=== PATIENT | male | born 1955 | race Caucasian/White ===

== ENCOUNTER → 2018-02-09 | Outpatient (CLI) | payer BC ==
[~2018-02-09] MED LIST: ASPI-496 PO; ERGO500017 PO; GABA300C10 PO; HYDR-3307 PO; HYDR25TA6 PO; IBUP-1223 PO; LISI-170 PO; METF500T4 PO; METH500T7 PO; MONT10TA9 PO; MULT-658 PO; PANT40TA5 PO; SIMV40TA3 PO
[2018-02-09 15:25] LABS: BASOPHILS # (AUTO) 0.03 x10^3/uL (0-0.1); BASOPHILS % (AUTO) 0 % (0-1); EOSINOPHILS # (AUTO) 0.23 x10^3/uL (0-0.4); EOSINOPHILS % (AUTO) 3 % (1-7); LYMPHOCYTES # (AUTO) 3.02 x10^3/uL (1-3.4); LYMPHOCYTES % (AUTO) 34 % (22-44); MD NO; MEAN CORPUSCULAR HGB CONC 34.1 g/dL (33.2-36.2); MEAN CORPUSCULAR VOLUME 90.9 fL (81-97); MEAN PLATELET VOLUME 7.2 fL (7.4-10.4); MONOCYTES # (AUTO) 0.84 x10^3/uL (0.2-0.8); MONOCYTES % (AUTO) 10 % (2-9); NEUTROPHILS # (AUTO) 4.74 x10^3/uL (1.8-6.8); NEUTROPHILS % (AUTO) 54 % (42-75); PLATELET COUNT 252 x10^3/uL (130-400); RED CELL DISTRIBUTION WIDTH 13.4 % (9.4-14.8)
[2018-02-09 15:33] LABS: MICROSCOPIC NOT IND
[2018-02-09 15:36] LABS: INTERNATIONAL NORMALIZED RATIO 0.89 (0.93-1.1); PROTHROMBIN TIME 9.3 Seconds (9.6-11.5)
[2018-02-09 15:40] LABS: CULTURE INDICATED? NO
[2018-02-09 15:45] LABS: CHLORIDE 104 mmol/L (98-107)
[2018-02-09 15:50] LABS: ALANINE AMINOTRANSFERASE 42 U/L (12-78); ALBUMIN 3.8 g/dL (3.4-5.0); ALKALINE PHOSPHATASE 72 U/L (45-117); ANION GAP 8 mmol/L (5-15); BILIRUBIN,TOTAL 0.4 mg/dL (0.2-1.0); CALCIUM 9.7 mg/dL (8.5-10.1); CREATININE 0.93 mg/dL (0.7-1.3); TOTAL PROTEIN 7.8 g/dL (6.4-8.2)
== END ==
LOC: STAR 14:28
PROVIDERS: ATTEND Neurological Surgery
DX: Z01.818 Encounter for other preprocedural examination (principal); M51.36 Other intervertebral disc degeneration, lumbar region
CPT/HCPCS: 36415; 71046; 80053; 81003; 85025; 85610; 85730; 93005

== ENCOUNTER 2018-02-18 05:21 | Inpatient (IN) | payer BC ==
[~2018-02-18] VITALS: Ht 177.8 cm; Wt 99.3 kg
[2018-02-18 06:07] VITALS: BP 169/107
[2018-02-18] MEDS ORDERED: LACTATED RINGERS 1,000 ML IV SCH (06:07)
[2018-02-18] MEDS ORDERED: MIDAZOLAM 1 MG/ML, 2ML ONE (06:11)
[2018-02-18] MEDS ORDERED: FENTANYL PF 250 MCG/5ML ONE (06:11)
[2018-02-18] MEDS ORDERED: PROPOFOL 10 MG/ML, 20ML ONE (06:14)
[2018-02-18] MEDS ORDERED: ROCURONIUM 10MG/ML,5ML ONE (06:15)
[2018-02-18] MEDS ORDERED: CEFAZOLIN 1,000 MG ONE ×2 (06:16)
[2018-02-18] MEDS ORDERED: SODIUM CHLORIDE 0.9% PF 10ML ONE (06:16)
[2018-02-18] MEDS ORDERED: THROMBIN 5,000 UNIT VIAL TP ONE (06:17)
[2018-02-18] MEDS ORDERED: BUPIVACAINE 0.25% ONE (06:17)
[2018-02-18] MEDS ORDERED: BUPIVACAINE/PF 0.5% ONE (06:17)
[2018-02-18] MEDS ORDERED: BACITRACIN 50,000 UNIT ONE (06:17)
[2018-02-18] MEDS ORDERED: EPINEPHRINE 1 MG/ML, 1ML ONE (06:17)
[2018-02-18] MEDS ORDERED: NEOSTIGMINE 1 MG/ML, 10ML ONE (06:18)
[2018-02-18] MEDS ORDERED: GLYCOPYRROLATE 0.4 MG/2 ML, 2ML ONE (06:18)
[2018-02-18] MEDS ORDERED: PROPOFOL 50 ML ONE ×3 (06:26→08:51)
[2018-02-18] MEDS ORDERED: MEPERIDINE/PF 25MG/0.5ML IVPush PRN (07:00)
[2018-02-18] MEDS ORDERED: FENTANYL PF 100 MCG/2ML IV PRN (07:00)
[2018-02-18] MEDS ORDERED: DIAZEPAM 5 MG/ML, 2ML IVPush PRN (07:00)
[2018-02-18] MEDS ORDERED: hydrALAzine 20 MG/ML, 1ML IV PRN (07:00)
[2018-02-18] MEDS ORDERED: PROMETHAZINE 25 MG/ML, 1ML IV PRN (07:00)
[2018-02-18] MEDS ORDERED: LABETALOL 5MG/ML, 20ML IV PRN (07:00)
[2018-02-18] MEDS ORDERED: OXYcodone 5 MG/5 ML ORAL.SOL UDC PO PRN (07:00)
[2018-02-18] MEDS ORDERED: ACETAMINOPHEN 325 MG TABLET PO PRN (07:00)
[2018-02-18] MEDS ORDERED: morphine SULFATE 10 MG/ML, 1ML IV PRN (07:00)
[2018-02-18] MEDS ORDERED: PROMETHAZINE 12.5 MG SUPP PR PRN (07:00)
[2018-02-18] MEDS ORDERED: ONDANSETRON 2MG/ML, 2ML IVPush PRN ×2 (07:00→10:00)
[2018-02-18] MEDS ORDERED: PHENYLEPHRINE 10 MG/ML ONE (07:12)
[2018-02-18] MEDS ORDERED: OXYcodone 5 MG/5 ML ORAL.SOL UDC ONE (09:49)
[2018-02-18] MEDS ORDERED: DIPHENHYDRAMINE 50 MG/ML, 1ML IVPush PRN (10:00)
[2018-02-18] MEDS ORDERED: OXYcodone/APAP 5/325MG TABLET PO PRN (10:00)
[2018-02-18] MEDS ORDERED: HYDROmorphone 1 MG/ML, 1ML ONE (10:00)
[2018-02-18] MEDS ORDERED: INSULIN REGULAR 100 UNITS/ML, 3ML VIAL SQ-INSULIN PRN (10:00)
[2018-02-18] MEDS ORDERED: SENNA/DOCUSATE TABLET PO PRN (10:00)
[2018-02-18] MEDS ORDERED: HYDROcodone/APAP 5/325 TABLET PO PRN (10:00)
[2018-02-18] MEDS ORDERED: PHARMACY MAY ADJ FOR RENAL FX MC PRN (10:00)
[2018-02-18] MEDS ORDERED: METHOCARBAMOL 750 MG TABLET PO PRN (10:00)
[2018-02-18] MEDS ORDERED: PROMETHAZINE 25 MG/ML, 1ML IM PRN (10:00)
[2018-02-18] MEDS ORDERED: BISACODYL 10 MG SUPP PR PRN (10:00)
[2018-02-18] MEDS: HYDROmorphone 1 MG/ML, 1ML IV PRN ×2 (10:10→10:20)
[2018-02-18 11:15] VITALS: BP 134/79
[2018-02-18] MEDS ORDERED: ERGOCALCIFEROL 50,000 UNIT CAPSULE PO SCH (11:30)
[2018-02-18] MEDS: NS + 20MEQ KCL 1,000 ML IV SCH ×2 (11:56→23:00)
[2018-02-18] MEDS: morphine SULFATE 10 MG/ML, 1ML IVPush PRN ×2 (11:57→12:24)
[2018-02-18 13:49] VITALS: BP 114/78
[2018-02-18] MEDS: CEFAZOLIN PMX 1GM/50ML 50 ML IVPB SCH ×2 (15:00→23:53)
[2018-02-18] MEDS: HYDROcodone/APAP 10/325 MG TABLET PO PRN ×3 (15:32→23:53)
[2018-02-18] MEDS: GABAPENTIN 300 MG CAPSULE PO SCH ×2 (15:34→21:05)
[2018-02-18 18:15] VITALS: BP 121/77
[2018-02-18] MEDS: SODIUM CHLORIDE FLUSH 10ML SYR IVF SCH (21:00)
[2018-02-18] MEDS: PANTOPROZOLE 40MG TABLET PO SCH (21:05)
[2018-02-18] MEDS: metFORMIN 500 MG TABLET PO SCH (21:05)
[2018-02-18] MEDS: SIMVASTATIN 40 MG TABLET PO SCH (21:05)
[2018-02-18] MEDS: CYCLOBENZAPRINE 10 MG TABLET PO PRN (21:16)
[2018-02-18 23:35] VITALS: BP 131/81
[2018-02-19] MEDS: NS + 20MEQ KCL 1,000 ML IV SCH (01:13)
[2018-02-19 03:04] VITALS: BP 116/60
[2018-02-19] MEDS: HYDROcodone/APAP 10/325 MG TABLET PO PRN ×5 (03:56→20:34)
[2018-02-19 08:17] VITALS: BP 157/93
[2018-02-19] MEDS: CYCLOBENZAPRINE 10 MG TABLET PO PRN ×2 (08:29→16:30)
[2018-02-19] MEDS: metFORMIN 500 MG TABLET PO SCH ×2 (08:29→20:35)
[2018-02-19] MEDS: GABAPENTIN 300 MG CAPSULE PO SCH ×3 (08:29→20:35)
[2018-02-19] MEDS: SODIUM CHLORIDE FLUSH 10ML SYR IVF SCH ×2 (08:29→20:34)
[2018-02-19] MEDS: LISINOPRIL 20 MG TABLET PO SCH (08:30)
[2018-02-19] MEDS: HYDROCHLOROTHIAZIDE 25 MG TABLET PO SCH (08:30)
[2018-02-19] MEDS: MONTELUKAST 10 MG TABLET PO SCH (08:30)
[2018-02-19] MEDS: MULTIVITAMIN 1 TABLET PO SCH (08:30)
[2018-02-19 16:23] VITALS: BP 132/76
[2018-02-19 16:25] VITALS: BP 132/76
[2018-02-19 19:23] VITALS: BP 116/77
[2018-02-19] MEDS: SIMVASTATIN 40 MG TABLET PO SCH (20:34)
[2018-02-19] MEDS: PANTOPROZOLE 40MG TABLET PO SCH (20:35)
[2018-02-20] MEDS: HYDROcodone/APAP 10/325 MG TABLET PO PRN ×3 (01:06→08:25)
[2018-02-20] MEDS: NS + 20MEQ KCL 1,000 ML IV SCH ×2 (02:00→12:00)
[2018-02-20 02:33] VITALS: BP 120/78
[2018-02-20] MEDS: MONTELUKAST 10 MG TABLET PO SCH (08:24)
[2018-02-20] MEDS: metFORMIN 500 MG TABLET PO SCH (08:24)
[2018-02-20] MEDS: GABAPENTIN 300 MG CAPSULE PO SCH (08:24)
[2018-02-20] MEDS: HYDROCHLOROTHIAZIDE 25 MG TABLET PO SCH (08:25)
[2018-02-20] MEDS: LISINOPRIL 20 MG TABLET PO SCH (08:25)
[2018-02-20] MEDS: CYCLOBENZAPRINE 10 MG TABLET PO PRN (08:25)
[2018-02-20] MEDS: MULTIVITAMIN 1 TABLET PO SCH (08:25)
[2018-02-20] MEDS: SODIUM CHLORIDE FLUSH 10ML SYR IVF SCH (08:38)
[2018-02-20 08:45] VITALS: BP 118/77
[2018-02-20] MEDS ORDERED: HYDR-3307 PO (09:51)
[2018-02-20] MEDS ORDERED: CEPH-368 PO (09:53)
[2018-02-20] MEDS ORDERED: METH750T87 PO (09:53)
== END 2018-02-20 12:00 | disposition home or self-care (01) | DRG 517 ==
LOC: OUT 05:21 → ORIP 09:42 → 4NOR 11:13
PROVIDERS: ADMIT Neurological Surgery; ATTEND Neurological Surgery
PROC: 00Q20ZZ Repair Dura Mater, Open Approach (ICD-10-PCS; 2018-02-18)
PROC: 01NR0ZZ Release Sacral Nerve, Open Approach (ICD-10-PCS; 2018-02-18)
PROC: 4A11X4G Monitoring of Peripheral Nervous Electrical Activity, Intraoperative, External Approach (ICD-10-PCS; 2018-02-18)
PROC: 01NB0ZZ Release Lumbar Nerve, Open Approach (ICD-10-PCS; principal; 2018-02-18 07:00)
DX: M48.062 Spinal stenosis, lumbar region with neurogenic claudication (principal); M51.17 Intervertebral disc disorders with radiculopathy, lumbosacral region
CPT/HCPCS: 72100; 82962; J0171; J0690; J1170; J2250; J2704; J2710; J3010; J3480; J3490; C1781; J2270; J2370; J7120